=== PATIENT | male | born 1965 | race Caucasian/White ===

== ENCOUNTER 2023-02-15 23:38 | Inpatient (IN) | payer MEDICAID, OTHER ==
[~2023-02-15] VITALS: Ht 177.8 cm; Wt 83.9 kg
[2023-02-16] VITALS (9 sets, daily range): BP systolic 118–136; BP diastolic 85–101
[2023-02-16 00:25] LABS: Basophils # (auto) 0.1 10 ^3/uL (0-0.2); Basophils % (auto) 0.5 % (0.0-2.0); Eosinophils # (auto) 0.1 10 ^3/uL (0-0.8); Eosinophils % (auto) 0.5 % (0.0-7.0); Hematocrit 45.8 % (41.0-53.0); Hemoglobin 15.5 g/dL (13.5-17.5); Lymphocytes % (auto) 15.7 % (10.0-50.0); Mean Corpuscular Hemoglobin 31.2 pg (28.0-32.0); Mean Corpuscular Hgb Conc. 33.9 g/dL (32.0-36.0); Monocytes # (auto) 1.2 10 ^3/uL (0-1.3); Monocytes % (auto) 9.3 % (0.0-12.0); Neutrophils # (auto) 9.2 10 ^3/uL (1.6-8.6); Nucleated Red Blood Cells % 0.3 %; Red Blood Cells 4.98 10^6/uL (4.5-5.90); Red Cell Distribution Width 14.5 % (11.8-14.3); White Blood Cell 12.5 10^3/uL (4.4-10.8)
[2023-02-16 00:44] LABS: Albumin 3.2 g/dL (3.4-5.0); BUN/Creatinine Ratio 19.7 (10.0-20.0); Calcium 8.9 mg/dL (8.5-10.1); Magnesium 2.5 mg/dL (1.6-2.6); Potassium 4.6 mmol/L (3.5-5.1)
[2023-02-16 00:47] LABS: Bilirubin, Total 1.2 mg/dL (0.2-1.0); Total Protein 6.4 g/dL (6.4-8.2)
[2023-02-16] MEDS ORDERED: FUROSEMIDE 20 MG/2 ML VIAL IV ONE (06:15)
[2023-02-16] MEDS ORDERED: AZITHROMYCIN 250 MG TAB PO ONE (06:15)
[2023-02-16] MEDS ORDERED: cefTRIAXone 1GM/50ML D5W 50 ML IV ONE (06:15)
[2023-02-16] MEDS ORDERED: HYDROcodone-ACET 5/325MG TAB PO PRN (07:15)
[2023-02-16] MEDS ORDERED: MORPHINE SULFATE INJ 2 MG/ml SYRG IV PRN ×2 (07:15)
[2023-02-16] MEDS ORDERED: NITROGLYCERIN 0.4 MG SL TAB SL PRN (07:15)
[2023-02-16] MEDS ORDERED: ACETAMINOPHEN 325 MG TAB PO PRN (07:15)
[2023-02-16 07:51] LABS: Amylase 25 U/L (25-115); Blood Alcohol < 3.0 mg/dL (0-5)
[2023-02-16 07:55] LABS: Cholesterol 140 mg/dL (< 200); HDL Cholesterol 29 mg/dL (40-59); LDL Cholesterol 98 mg/dL (< 100); Triglycerides 136 mg/dL (< 150)
[2023-02-16 08:23] LABS: INR 1.03 (0.9-1.15); Partial Thromboplastin Time 27.3 sec (24.6-33.4)
[2023-02-16 08:40] LABS: Urine WBC None Seen /hpf (0 - 3)
[2023-02-16 09:07] LABS: Urine Bacteria NONE SEEN /hpf (None Seen); Urine Blood Negative /uL (Negative); Urine Hyaline Cast FEW /lpf (0 - 2); Urine Specific Gravity 1.005 (1.001-1.035)
[2023-02-16 09:14] LABS: Alcohol, Urine < 3.0 mg/dL (0-10); Amphetamine Screen, Urine NEGATIVE (NEGATIVE); Barbiturate Scree,Urine NEGATIVE (NEGATIVE); Cannabinoid Screen, Urine NEGATIVE (NEGATIVE); Cocaine Screen, Urine NEGATIVE (NEGATIVE)
[2023-02-16] MEDS: PANTOPRAZOLE 40 MG/10 ML VIAL INJ IV SCH (09:16)
[2023-02-16 09:17] LABS: Benzodiazephine Screen, Urine NEGATIVE (NEGATIVE); Opiate Scree,Urine NEGATIVE (NEGATIVE); Phencyclidine Screen, Urine NEGATIVE (NEGATIVE)
[2023-02-16] MEDS ORDERED: fentaNYL CITRATE 100 MCG/2 ML VL ONE (10:37)
[2023-02-16] MEDS ORDERED: VERAPAMIL 2.5MG/ML INJ 2ML VIAL IV ONE (12:37)
[2023-02-16] MEDS ORDERED: HEPARIN SODIUM (PORCINE) 5000 UNITS/ML 1ML VIAL ONE (12:37)
[2023-02-16] MEDS ORDERED: ANGIOMAX 250 MG VIAL IV ONE (12:37)
[2023-02-16] MEDS ORDERED: SODIUM CHL 0.9% 0 ML ONE (12:38)
[2023-02-16] MEDS ORDERED: MIDAZOLAM HCL 2MG/2ML 2ml VIAL (1mg/ml) ONE (12:38)
[2023-02-16] MEDS ORDERED: IODIXANOL 320MG/ML 100ML BTL IV ONE (12:42)
[2023-02-16] MEDS: FUROSEMIDE 20 MG/2 ML VIAL IV SCH (18:02)
[2023-02-16] MEDS: SACUBITRIL-VALSARTAN 24mg/26mg TAB PO SCH (22:11)
[2023-02-16] MEDS: ATORVASTATIN 20 MG TAB PO SCH (22:11)
[2023-02-16] MEDS: CARVEDILOL 3.125 MG TAB PO SCH (22:12)
[2023-02-17 04:43] VITALS: BP 98/68
[2023-02-17 05:56] LABS: Basophils # (auto) 0.1 10 ^3/uL (0-0.2); Basophils % (auto) 0.5 % (0.0-2.0); Eosinophils # (auto) 0.1 10 ^3/uL (0-0.8); Eosinophils % (auto) 0.8 % (0.0-7.0); Hematocrit 44.1 % (41.0-53.0); Hemoglobin 15.1 g/dL (13.5-17.5); Lymphocytes # (auto) 1.7 10 ^3/uL (0.4-5.4); Mean Corpuscular Hemoglobin 31.5 pg (28.0-32.0); Mean Corpuscular Hgb Conc. 34.1 g/dL (32.0-36.0); Mean Corpuscular Volume 92.3 fL (80.0-100.0); Monocytes # (auto) 1.5 10 ^3/uL (0-1.3); Monocytes % (auto) 13.8 % (0.0-12.0); Neutrophils # (auto) 7.3 10 ^3/uL (1.6-8.6); Neutrophils % (auto) 68.9 % (37.0-80.0); Nucleated Red Blood Cells % 0.1 %; Red Blood Cells 4.78 10^6/uL (4.5-5.90); Red Cell Distribution Width 14.6 % (11.8-14.3); White Blood Cell 10.7 10^3/uL (4.4-10.8)
[2023-02-17 06:10] LABS: Potassium 4.3 mmol/L (3.5-5.1)
[2023-02-17 06:15] LABS: Albumin 2.7 g/dL (3.4-5.0); BUN/Creatinine Ratio 20.6 (10.0-20.0); Bilirubin, Total 1.3 mg/dL (0.2-1.0); Calcium 8.3 mg/dL (8.5-10.1); Magnesium 2.6 mg/dL (1.6-2.6); Total Protein 5.6 g/dL (6.4-8.2)
[2023-02-17] MEDS: FUROSEMIDE 20 MG/2 ML VIAL IV SCH ×2 (06:34→19:01)
[2023-02-17] MEDS: EMPAGLIFLOZIN 10 MG TAB PO SCH (06:35)
[2023-02-17 09:00] VITALS: BP 106/72
[2023-02-17] MEDS: PANTOPRAZOLE 40 MG/10 ML VIAL INJ IV SCH (09:45)
[2023-02-17] MEDS: cefTRIAXone 1GM/50ML D5W 50 ML IV SCH (09:45)
[2023-02-17] MEDS: CARVEDILOL 3.125 MG TAB PO SCH ×2 (09:46→21:48)
[2023-02-17] MEDS: ASPirin-EC 81 mg tab PO SCH (09:47)
[2023-02-17] MEDS: SACUBITRIL-VALSARTAN 24mg/26mg TAB PO SCH ×2 (09:58→21:47)
[2023-02-17] MEDS ORDERED: AZITHROMYCIN 500MG/ 250ML 250 ML IV SCH (10:00)
[2023-02-17 12:21] VITALS: BP 113/90
[2023-02-17] MEDS ORDERED: FUROSEMIDE 40 MG/4 ML VIAL IV ONE (12:30)
[2023-02-17 16:28] VITALS: BP 99/57
[2023-02-17 20:00] VITALS: BP 103/63
[2023-02-17] MEDS: ATORVASTATIN 20 MG TAB PO SCH (21:47)
[2023-02-18] VITALS (8 sets, daily range): BP systolic 93–105; BP diastolic 63–77
[2023-02-18 06:16] LABS: BUN/Creatinine Ratio 24.8 (10.0-20.0); Potassium 4.4 mmol/L (3.5-5.1)
[2023-02-18] MEDS: FUROSEMIDE 20 MG/2 ML VIAL IV SCH ×2 (06:19→17:55)
[2023-02-18] MEDS: EMPAGLIFLOZIN 10 MG TAB PO SCH (06:19)
[2023-02-18] MEDS ORDERED: AZITHROMYCIN 250 MG TAB PO SCH (10:00)
[2023-02-18] MEDS: ASPirin-EC 81 mg tab PO SCH (10:08)
[2023-02-18] MEDS: CARVEDILOL 3.125 MG TAB PO SCH ×2 (10:09→22:19)
[2023-02-18] MEDS: SACUBITRIL-VALSARTAN 24mg/26mg TAB PO SCH ×2 (10:09→22:18)
[2023-02-18] MEDS: SPIRONOLACTONE 25 MG TAB PO SCH (10:10)
[2023-02-18] MEDS: PANTOPRAZOLE 40 MG/10 ML VIAL INJ IV SCH (10:10)
[2023-02-18] MEDS: cefTRIAXone 1GM/50ML D5W 50 ML IV SCH (10:11)
[2023-02-18 10:33] LABS: Hepatitis B Surface Antibody Negative (Negative)
[2023-02-18] MEDS: DOXYCYCLINE 100 MG TAB/CAP PO SCH ×2 (10:47→22:18)
[2023-02-18 11:06] LABS: Hepatitis A Total Antibody Negative (Negative)
[2023-02-18 14:06] LABS: Hepatitis C Antibody Negative (Negative)
[2023-02-18] MEDS: ATORVASTATIN 20 MG TAB PO SCH (22:20)
[2023-02-19 05:00] VITALS: BP 102/57
[2023-02-19] MEDS: EMPAGLIFLOZIN 10 MG TAB PO SCH (06:15)
[2023-02-19] MEDS: FUROSEMIDE 20 MG/2 ML VIAL IV SCH ×2 (06:15→18:27)
[2023-02-19 08:05] VITALS: BP 102/77
[2023-02-19] MEDS: cefTRIAXone 1GM/50ML D5W 50 ML IV SCH (09:02)
[2023-02-19] MEDS: SPIRONOLACTONE 25 MG TAB PO SCH (09:02)
[2023-02-19] MEDS: PANTOPRAZOLE 40 MG/10 ML VIAL INJ IV SCH (09:02)
[2023-02-19] MEDS: DOXYCYCLINE 100 MG TAB/CAP PO SCH ×2 (09:02→21:35)
[2023-02-19] MEDS: ASPirin-EC 81 mg tab PO SCH (09:02)
[2023-02-19] MEDS ORDERED: IOHEXOL 300 MG/ML 100ML BOTTLE IJ ONE (11:29)
[2023-02-19 12:05] VITALS: BP 97/70
[2023-02-19] MEDS: CARVEDILOL 3.125 MG TAB PO SCH ×2 (12:57→21:35)
[2023-02-19] MEDS: SACUBITRIL-VALSARTAN 24mg/26mg TAB PO SCH ×2 (12:57→21:35)
[2023-02-19 16:10] VITALS: BP 91/61
[2023-02-19 20:00] VITALS: BP 104/68
[2023-02-19] MEDS: ATORVASTATIN 20 MG TAB PO SCH (21:35)
[2023-02-19 21:42] VITALS: BP 104/68
[2023-02-20 05:06] VITALS: BP 99/69
[2023-02-20] MEDS: FUROSEMIDE 20 MG/2 ML VIAL IV SCH ×2 (06:23→18:47)
[2023-02-20] MEDS: EMPAGLIFLOZIN 10 MG TAB PO SCH (06:26)
[2023-02-20 08:00] VITALS: BP 110/87
[2023-02-20 09:00] VITALS: BP 110/87
[2023-02-20] MEDS: ASPirin-EC 81 mg tab PO SCH (10:34)
[2023-02-20] MEDS: cefTRIAXone 1GM/50ML D5W 50 ML IV SCH (10:34)
[2023-02-20] MEDS: PANTOPRAZOLE 40 MG/10 ML VIAL INJ IV SCH (10:34)
[2023-02-20] MEDS: DOXYCYCLINE 100 MG TAB/CAP PO SCH ×2 (10:34→22:44)
[2023-02-20] MEDS: SPIRONOLACTONE 25 MG TAB PO SCH (10:35)
[2023-02-20] MEDS: SACUBITRIL-VALSARTAN 24mg/26mg TAB PO SCH ×2 (10:35→22:43)
[2023-02-20] MEDS: CARVEDILOL 3.125 MG TAB PO SCH ×2 (10:39→22:45)
[2023-02-20 13:00] VITALS: BP 107/78
[2023-02-20 16:57] VITALS: BP 102/72
[2023-02-20 22:00] VITALS: BP 112/79
[2023-02-20] MEDS: ATORVASTATIN 20 MG TAB PO SCH (22:44)
[2023-02-21 05:00] VITALS: BP 107/65
[2023-02-21] MEDS: FUROSEMIDE 20 MG/2 ML VIAL IV SCH ×3 (07:12→18:08)
[2023-02-21] MEDS: EMPAGLIFLOZIN 10 MG TAB PO SCH (07:12)
[2023-02-21 08:00] VITALS: BP 106/72
[2023-02-21 09:00] VITALS: BP 106/72
[2023-02-21] MEDS: DOXYCYCLINE 100 MG TAB/CAP PO SCH ×2 (09:16→23:13)
[2023-02-21] MEDS: PANTOPRAZOLE 40 MG/10 ML VIAL INJ IV SCH (09:16)
[2023-02-21] MEDS: cefTRIAXone 1GM/50ML D5W 50 ML IV SCH (09:16)
[2023-02-21] MEDS: SACUBITRIL-VALSARTAN 24mg/26mg TAB PO SCH ×2 (09:16→23:13)
[2023-02-21] MEDS: ASPirin-EC 81 mg tab PO SCH (09:16)
[2023-02-21] MEDS: SPIRONOLACTONE 25 MG TAB PO SCH (09:17)
[2023-02-21] MEDS: CARVEDILOL 3.125 MG TAB PO SCH ×2 (09:17→23:13)
[2023-02-21 17:00] VITALS: BP 104/69
[2023-02-21 20:00] VITALS: BP 100/62
[2023-02-21 22:00] VITALS: BP 100/62
[2023-02-21] MEDS: ATORVASTATIN 20 MG TAB PO SCH (23:13)
[2023-02-22 05:00] VITALS: BP 95/60
[2023-02-22 06:40] VITALS: BP 102/73
[2023-02-22] MEDS: EMPAGLIFLOZIN 10 MG TAB PO SCH (06:49)
[2023-02-22] MEDS: FUROSEMIDE 20 MG/2 ML VIAL IV SCH ×2 (06:50→18:56)
[2023-02-22 09:00] VITALS: BP 96/68
[2023-02-22] MEDS: PANTOPRAZOLE 40 MG/10 ML VIAL INJ IV SCH (09:25)
[2023-02-22] MEDS: cefTRIAXone 1GM/50ML D5W 50 ML IV SCH (09:25)
[2023-02-22] MEDS: CARVEDILOL 3.125 MG TAB PO SCH ×2 (09:25→22:07)
[2023-02-22] MEDS: ASPirin-EC 81 mg tab PO SCH (09:26)
[2023-02-22] MEDS: SACUBITRIL-VALSARTAN 24mg/26mg TAB PO SCH ×2 (09:26→22:08)
[2023-02-22] MEDS: SPIRONOLACTONE 25 MG TAB PO SCH (09:26)
[2023-02-22] MEDS: DOXYCYCLINE 100 MG TAB/CAP PO SCH ×2 (09:26→22:08)
[2023-02-22 13:00] VITALS: BP 93/59
[2023-02-22 17:00] VITALS: BP 99/68
[2023-02-22 22:00] VITALS: BP 112/75
[2023-02-22] MEDS: ATORVASTATIN 20 MG TAB PO SCH (22:07)
[2023-02-23 05:00] VITALS: BP 97/66
[2023-02-23] MEDS: FUROSEMIDE 20 MG/2 ML VIAL IV SCH ×2 (06:02→18:00)
[2023-02-23] MEDS: EMPAGLIFLOZIN 10 MG TAB PO SCH (06:02)
[2023-02-23 08:00] VITALS: BP 101/71
[2023-02-23 08:30] VITALS: BP 101/71
[2023-02-23] MEDS: cefTRIAXone 1GM/50ML D5W 50 ML IV SCH (10:21)
[2023-02-23] MEDS: CARVEDILOL 3.125 MG TAB PO SCH (10:22)
[2023-02-23] MEDS: SPIRONOLACTONE 25 MG TAB PO SCH (10:22)
[2023-02-23] MEDS: PANTOPRAZOLE 40 MG/10 ML VIAL INJ IV SCH (10:23)
[2023-02-23] MEDS: SACUBITRIL-VALSARTAN 24mg/26mg TAB PO SCH (10:23)
[2023-02-23] MEDS: ASPirin-EC 81 mg tab PO SCH (10:23)
[2023-02-23 12:30] VITALS: BP 102/70
[2023-02-23] MEDS ORDERED: ASPI1TAB20 PO (13:47)
[2023-02-23] MEDS ORDERED: SPIR25TA PO (13:47)
[2023-02-23] MEDS ORDERED: FURO1TAB31 PO (13:47)
[2023-02-23] MEDS ORDERED: ATO40T PO (13:47)
[2023-02-23] MEDS ORDERED: SACU1TAB PO (13:47)
[2023-02-23] MEDS ORDERED: EMPA1TAB PO (13:47)
[2023-02-23] MEDS ORDERED: CAR3125T OR (13:47)
[2023-02-23 17:00] VITALS: BP 94/58
== END 2023-02-23 19:35 | disposition home or self-care (01) | DRG 192 ==
LOC: ER 23:38 → TELE 02-16 07:19 → TELE-WESTW 02-16 17:29
PROVIDERS: ADMIT Registered Nurse; ATTEND Internal Medicine Geriatric Medicine
PROC: 4A023N7 Measurement of Cardiac Sampling and Pressure, Left Heart, Percutaneous Approach (ICD-10-PCS; principal; 2023-02-16)
PROC: B211YZZ Fluoroscopy of Multiple Coronary Arteries using Other Contrast (ICD-10-PCS; 2023-02-16)
PROC: B215YZZ Fluoroscopy of Left Heart using Other Contrast (ICD-10-PCS; 2023-02-16)
DX: I11.0 Hypertensive heart disease with heart failure (principal); J96.02 Acute respiratory failure with hypercapnia; E44.1 Mild protein-calorie malnutrition; I42.0 Dilated cardiomyopathy; I50.23 Acute on chronic systolic (congestive) heart failure; Z20.822 Contact with and (suspected) exposure to COVID-19; R74.01 Elevation of levels of liver transaminase levels; R94.5 Abnormal results of liver function studies; I25.10 Atherosclerotic heart disease of native coronary artery without angina pectoris; Z79.82 Long term (current) use of aspirin; Z79.84 Long term (current) use of oral hypoglycemic drugs
CPT/HCPCS: 36415; 36600; 71045; 74177; 80048; 80053; 80061; 80307; 80320; 81001; 82150; 82805; 82962; 82977; 83036; 83735; 83880; 84443; 84484; 85025; 85379; 85610; 85652; 85730; 86141; 86704; 86706; 86708; 86803; 87040; 87070; 87205; 87340; 87426; 93005; 93306; 93458; 93925; 93970; 99152; 99291; C9113; G0378; J0696; J2250; Q9967

== ENCOUNTER 2023-04-01 19:09 | Emergency (ER) | payer MEDICAID ==
[~2023-04-01] VITALS: Ht 182.9 cm; Wt 86.2 kg
[~2023-04-01 19:09] MED LIST: ASPI1TAB20 PO; ATO40T PO; CAR3125T OR; EMPA1TAB PO; FURO1TAB31 PO; SACU1TAB PO; SPIR25TA PO
[2023-04-01 19:17] VITALS: BP 116/77
[2023-04-01] MEDS ORDERED: ASPirin 325 MG TAB PO ONE (19:45)
[2023-04-01 19:46] LABS: Basophils # (auto) 0 10 ^3/uL (0-0.2); Basophils % (auto) 0.5 % (0.0-2.0); Eosinophils # (auto) 0.2 10 ^3/uL (0-0.8); Eosinophils % (auto) 1.9 % (0.0-7.0); Hematocrit 42.1 % (41.0-53.0); Hemoglobin 14.4 g/dL (13.5-17.5); Lymphocytes % (auto) 22.4 % (10.0-50.0); Mean Corpuscular Hgb Conc. 34.2 g/dL (32.0-36.0); Mean Corpuscular Volume 90.6 fL (80.0-100.0); Monocytes % (auto) 11.3 % (0.0-12.0); Neutrophils # (auto) 5.6 10 ^3/uL (1.6-8.6); Neutrophils % (auto) 63.9 % (37.0-80.0); Red Blood Cells 4.64 10^6/uL (4.5-5.90); Red Cell Distribution Width 13.7 % (11.8-14.3); White Blood Cell 8.7 10^3/uL (4.4-10.8)
[2023-04-01 20:02] LABS: INR 0.92 (0.9-1.15); Partial Thromboplastin Time 26.9 sec (24.6-33.4)
[2023-04-01 20:04] LABS: Calcium 8.5 mg/dL (8.5-10.1); Magnesium 2.6 mg/dL (1.6-2.6); Potassium 4.5 mmol/L (3.5-5.1)
[2023-04-01 20:08] LABS: BUN/Creatinine Ratio 26.1 (10.0-20.0); Bilirubin, Total 0.6 mg/dL (0.2-1.0); Total Protein 6.7 g/dL (6.4-8.2)
[2023-04-01] MEDS ORDERED: CARVEDILOL 3.125 MG TAB PO SCH (22:00)
[2023-04-01] MEDS ORDERED: ATORVASTATIN 20 MG TAB PO SCH (22:00)
[2023-04-01] MEDS ORDERED: DOCUSATE SOD 100 MG CAP PO PRN (22:00)
[2023-04-01] MEDS ORDERED: ONDANSETRON HCL 4 MG/2 ML VIAL IV PRN (22:00)
[2023-04-01] MEDS ORDERED: SODIUM CHLOR 0.9% PF (SALINE LOCK) 10ML VIAL/SYR IV SCH (22:00)
[2023-04-01] MEDS ORDERED: HYDROcodone-ACET 5/325MG TAB PO PRN (22:00)
[2023-04-01] MEDS ORDERED: ACETAMINOPHEN 325 MG TAB PO PRN (22:00)
[2023-04-02] MEDS ORDERED: ASPirin 81 mg TAB PO SCH (10:00)
[2023-04-02] MEDS ORDERED: FUROSEMIDE 20 MG/2 ML VIAL IV SCH (10:00)
== END 2023-04-01 22:03 | disposition left against medical advice (07) ==
LOC: ER 19:12
DX: R07.89 Other chest pain (principal); I11.0 Hypertensive heart disease with heart failure; I50.9 Heart failure, unspecified; E78.5 Hyperlipidemia, unspecified; F15.10 Other stimulant abuse, uncomplicated; Z88.6 Allergy status to analgesic agent
CPT/HCPCS: 36415; 71045; 80053; 83690; 83735; 83880; 84484; 85025; 85379; 85610; 85730; 93005

== ENCOUNTER 2023-06-05 10:32 | Emergency (ER) | payer MEDICAID ==
[~2023-06-05] VITALS: Ht 182.9 cm; Wt 84.0 kg
[2023-06-05 10:50] VITALS: BP 149/72; PULSE 74; RESP 18; TEMP 97.6; O2SAT 96
[2023-06-05] MEDS ORDERED: SACU1TAB PO (11:36)
[2023-06-05] MEDS ORDERED: CAR3125T OR (11:36)
[2023-06-05] MEDS ORDERED: EMPA1TAB PO (11:36)
[2023-06-05] MEDS ORDERED: ATO40T PO (11:36)
[2023-06-05] MEDS ORDERED: FURO1TAB31 PO (11:36)
== END 2023-06-05 11:30 | disposition home or self-care (01) ==
LOC: ER 10:32
DX: E78.5 Hyperlipidemia, unspecified (principal); F15.90 Other stimulant use, unspecified, uncomplicated; I11.0 Hypertensive heart disease with heart failure; I50.89 Other heart failure; I10 Essential (primary) hypertension; Z76.0 Encounter for issue of repeat prescription; Z79.899 Other long term (current) drug therapy; Z79.82 Long term (current) use of aspirin